=== PATIENT | female | born 1995 | race Caucasian/White ===

== ENCOUNTER 2017-08-01 22:38 | Emergency (ER) | payer BC ==
[2017-08-01 22:39] VITALS: O2SAT 100
[2017-08-01 22:48] VITALS: RESP 16; TEMP 97.8
[2017-08-01] MEDS ORDERED: KETOROLAC TROMETHAMINE 30 MG/ML SOL IM ONE (22:56)
[2017-08-01] MEDS ORDERED: KETOROLAC TROMETHAMINE 30 MG/ML SOL ONE (22:59)
[2017-08-01] MEDS ORDERED: CYCLOBENZAPRINE 10 MG TAB PO ONE ×2 (23:24→23:25)
[2017-08-01] MEDS ORDERED: CYCLOBENZAPRINE 10 MG TAB ONE (23:24)
[2017-08-01 23:54] VITALS: BP 109/71; PULSE 71
== END 2017-08-01 23:51 | disposition home or self-care (01) ==
LOC: ED 22:38
DX: R07.81 Pleurodynia (principal); M54.9 Dorsalgia, unspecified; M54.6 Pain in thoracic spine; M62.830 Muscle spasm of back
CPT/HCPCS: 99283; J1885; A9270-GY